=== PATIENT | female | born 1960 | race Caucasian/White ===

== ENCOUNTER 2017-10-29 10:14 | Day surgery (SDC) | payer BC, OTHER ==
[2017-10-29] MEDS: Polymyxin B/Trimethoprim 10 ML Bottle EYELF SCH ×4 (11:22→13:16)
[2017-10-29] MEDS: Brimonidine 0.2% Ophth Soln 5 ML Bottle EYELF SCH ×4 (11:27→13:16)
[2017-10-29] MEDS: Phenylephrine 2.5% Ophth Soln 2 ML Bot EYELF SCH ×6 (11:33→12:58)
[2017-10-29] MEDS: Lidocaine 1% PF 2 ML SDV INJECT SCH ×2 (11:41→13:04)
[2017-10-29] MEDS: Tetracaine HCl/PF 0.5% 4 ML Bottle EYELF SCH ×3 (11:41→13:04)
[2017-10-29] MEDS: Cefuroxime 10 MG/ML SYRINGE EYELF SCH ×2 (11:42→13:16)
[2017-10-29] MEDS: Pilocarpine 4% Ophth Soln 15 ML Bot EYELF SCH ×2 (11:42→13:16)
--- NOTE | 2017-10-29 11:57 | PCM.PREANE ---
Preanesthetic Assessment - Anesthesia/Transfusion/Family Hx Anesthesia History: Prior Anesthesia Without Reaction Family History of Anesthesia Reaction: Yes Transfusion History: No Prior Transfusion(s) Intubation History: Unknown - Review of Systems General: No Symptoms Pulmonary: No Symptoms Cardiovascular: No Symptoms Gastrointestinal: No Symptoms Neurological: No Symptoms Other: Reports: None - Physical Assessment NPO Status Date: 10/28/17 NPO Status Time: 19:30 Pulse: 77 O2 Sat by Pulse Oximetry: 96 Respiratory Rate: 16 Blood Pressure: 152/82 Vital Signs: Last Vital Signs Temp 36.6 C 10/29/17 11:10 Pulse 77 10/29/17 11:10 Resp 16 10/29/17 11:10 BP 152/82 H 10/29/17 11:10 Pulse Ox 96 10/29/17 11:10 Height: 1.6 m Weight: 113.398 kg ASA Class: 2 Mental Status: Alert & Oriented x3 Airway Class: Mallampati = 2 Dentition: Reports: Normal Dentition Thyro-Mental Finger Breadths: 3 Mouth Opening Finger Breadths: 3 ROM/Head Extension: Full Lungs: Clear to Auscultation, Normal Respiratory Effort Cardiovascular: Regular Rate, Regular Rhythm - Allergies Allergies/Adverse Reactions: Allergies Allergy/AdvReac Type Severity Reaction Status Date / Time Penicillins Allergy Cannot Verified 10/28/17 12:22 Remember - Acknowledgements Anesthesia Type Planned: MAC Pt an Appropriate Candidate for the Planned Anesthesia: Yes Alternatives and Risks of Anesthesia Discussed w Pt/Guardian: Yes Pt/Guardian Understands and Agrees with Anesthesia Plan: Yes PreAnesthesia Questionnaire HEENT History: Reports: Cataract Cardiovascular History: Reports: None Respiratory History: Reports: None Gastrointestinal History: Reports: GERD Genitourinary History: Reports: None LATH HAND History: Reports: None Musculoskeletal History: Reports: None Neurological History: Reports: None Psychiatric History: Reports: None Endocrine/Metabolic History: Reports: None Hematologic History: Reports: None Immunologic History: Reports: None Oncologic (Cancer) History: Reports: None Dermatologic History: Reports: None - Past Surgical History Head Surgeries/Procedures: Reports: None, Other (See Below) (chiarri- malformation) HEENT Surgical History: Reports: None, Adenoidectomy, Tonsillectomy Cardiovascular Surgical History: Reports: None Respiratory Surgical History: Reports: None GI Surgical History: Reports: None Female Surgical History: Reports: Section Male Surgical History: Reports: None Endocrine Surgical History: Reports: None Neurological Surgical History: Reports: None Musculoskeletal Surgical History: Reports: Arthroscopic Knee Oncologic Surgical History: Reports: None Dermatological Surgical History: Reports: None - SUBSTANCE USE Smoking Status *Q: Never Smoker - HOME MEDS Home Medications: Home Meds Magnesium 200 mg PO DAILY 10/28/17 [History] Multivitamin [Multi-Day Vitamins] 1 tab PO DAILY 10/28/17 [History] - CURRENT (IN HOUSE) MEDS Current Meds: Current Medications Brimonidine Tartrate (Alphagan 0.2% Ophth Soln) 0 ml EYELF ASDIRECTED ROMEL Stop: 10/29/17 18:00 Last Admin: 10/29/17 11:42 Dose: 1 ml Cefuroxime Sodium (Zinacef) 0 mg EYELF ASDIRECTED ROMEL Stop: 10/29/17 18:00 Last Admin: 10/29/17 11:42 Dose: 1 mg Lidocaine HCl (Xylocaine-Mpf 1%) 10 ml INJECT ASDIRECTED ROMEL Stop: 10/29/17 18:00 Last Admin: 10/29/17 11:41 Dose: 1 ml Phenylephrine HCl (Marv-Synephrine 2.5% Ophth Soln) 0 ml EYELF ASDIRECTED ROMEL Stop: 10/29/17 18:00 Last Admin: 10/29/17 11:43 Dose: 1 drop Pilocarpine HCl (Pilocar 4% Ophth Soln) 0 ml EYELF ASDIRECTED ROMEL Stop: 10/29/17 18:00 Last Admin: 10/29/17 11:42 Dose: 1 ml Polymyxin/Trimethoprim Sulfate (Polytrim Ophth Soln) 0 ml EYELF ASDIRECTED ROMEL Stop: 10/29/17 18:00 Last Admin: 10/29/17 11:42 Dose: 1 ml Tetracaine HCl (Tetracaine 0.5% Steri-Unit Mckenna) 0 ml EYELF ASDIRECTED ROMEL Stop: 10/29/17 18:00 Last Admin: 10/29/17 11:41 Dose: 1 ml Tropicamide (Mydriacyl 1% Ophth Soln) 0 ml EYELF ASDIRECTED ROMEL Stop: 10/29/17 18:00 Last Admin: 10/29/17 11:50 Dose: 1 drop
--- NOTE | 2017-10-29 13:16 | PCM48HPAN ---
Post Anesthesia Note - EVALUATION WITHIN 48HRS OF ANESTHETIC Vital Signs in Normal Range: Yes Patient Participated in Evaluation: Yes Respiratory Function Stable: Yes Airway Patent: Yes Cardiovascular Function Stable: Yes Hydration Status Stable: Yes Pain Control Satisfactory: Yes Nausea and Vomiting Control Satisfactory: Yes Mental Status Recovered: Yes Pulse Rate: 77 SaO2: 95 Resp Rate: 16 Temperature: 97 C Blood Pressure: 184/94
== END 2017-10-29 13:30 | disposition home or self-care (01) ==
LOC: JD.SDS 10:14
PROVIDERS: ATTEND Ophthalmology
DX: H25.813 Combined forms of age-related cataract, bilateral (principal); H17.813 Minor opacity of cornea, bilateral; H16.223 Keratoconjunctivitis sicca, not specified as Sjogren's, bilateral; H16.103 Unspecified superficial keratitis, bilateral; H43.813 Vitreous degeneration, bilateral; K21.9 Gastro-esophageal reflux disease without esophagitis; Z90.89 Acquired absence of other organs; Z79.899 Other long term (current) drug therapy; Z88.0 Allergy status to penicillin
CPT/HCPCS: 66984; C1780; J0697; A9270-GY

== ENCOUNTER 2017-11-24 08:23 | Day surgery (SDC) | payer BC, OTHER ==
[2017-11-24] MEDS: Polymyxin B/Trimethoprim 10 ML Bottle EYERT SCH ×4 (09:14→11:47)
--- NOTE | 2017-11-24 09:17 | PCM.PREANE ---
Preanesthetic Assessment - Procedure Proposed Procedure: Right Eye Cataract Extraction with implant - Anesthesia/Transfusion/Family Hx Anesthesia History: Prior Anesthesia Without Reaction Family History of Anesthesia Reaction: No Transfusion History: No Prior Transfusion(s) Intubation History: Unknown - Review of Systems General: No Symptoms Pulmonary: No Symptoms Cardiovascular: No Symptoms Gastrointestinal: Other (GERD - tx with tums, not crurrently ) Neurological: No Symptoms Other: Reports: None - Physical Assessment NPO Status Date: 11/23/17 NPO Status Time: 22:00 O2 Sat by Pulse Oximetry: 94 Respiratory Rate: 16 Vital Signs: Last Vital Signs Temp 36.6 C 11/24/17 08:50 Pulse 74 11/24/17 08:50 Resp 16 11/24/17 08:50 BP 147/80 H 11/24/17 08:50 Pulse Ox 94 L 11/24/17 08:50 Height: 1.6 m Weight: 113.398 kg ASA Class: 2 Mental Status: Alert & Oriented x3 Airway Class: Mallampati = 1 Dentition: Reports: Normal Dentition Thyro-Mental Finger Breadths: 3 Mouth Opening Finger Breadths: 5 ROM/Head Extension: Full Lungs: Clear to Auscultation, Normal Respiratory Effort Cardiovascular: Regular Rate, Regular Rhythm - Allergies Allergies/Adverse Reactions: Allergies Allergy/AdvReac Type Severity Reaction Status Date / Time Penicillins Allergy Cannot Verified 11/23/17 14:25 Remember - Blood Blood Available: No - Acknowledgements Anesthesia Type Planned: MAC Pt an Appropriate Candidate for the Planned Anesthesia: Yes Alternatives and Risks of Anesthesia Discussed w Pt/Guardian: Yes Pt/Guardian Understands and Agrees with Anesthesia Plan: Yes PreAnesthesia Questionnaire HEENT History: Reports: Cataract Cardiovascular History: Reports: None Respiratory History: Reports: None Gastrointestinal History: Reports: GERD Genitourinary History: Reports: None 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 Musculoskeletal History: Reports: None Neurological History: Reports: None Psychiatric History: Reports: None Endocrine/Metabolic History: Reports: None Hematologic History: Reports: None Immunologic History: Reports: None Oncologic (Cancer) History: Reports: None Dermatologic History: Reports: None - Past Surgical History Head Surgeries/Procedures: Reports: None, Other (See Below) (chiarri- malformation) HEENT Surgical History: Reports: None, Adenoidectomy, Tonsillectomy Cardiovascular Surgical History: Reports: None Respiratory Surgical History: Reports: None GI Surgical History: Reports: None Female Surgical History: Reports: Section Male Surgical History: Reports: None Endocrine Surgical History: Reports: None Neurological Surgical History: Reports: None Musculoskeletal Surgical History: Reports: Arthroscopic Knee Oncologic Surgical History: Reports: None Dermatological Surgical History: Reports: None - SUBSTANCE USE Smoking Status *Q: Never Smoker - HOME MEDS Home Medications: Home Meds Magnesium 200 mg PO DAILY 10/28/17 [History] Multivitamin [Multi-Day Vitamins] 1 tab PO DAILY 10/28/17 [History] - CURRENT (IN HOUSE) MEDS Current Meds: Current Medications Brimonidine Tartrate (Alphagan 0.2% Ophth Soln) 0 ml EYERT ASDIRECTED ROMEL Stop: 11/24/17 18:00 Cefuroxime Sodium (Zinacef) 0 mg EYERT ASDIRECTED ROMEL Stop: 11/24/17 18:00 Lidocaine HCl (Xylocaine-Mpf 1%) 10 ml INJECT ASDIRECTED ROMEL Stop: 11/24/17 18:00 Phenylephrine HCl (Marv-Synephrine 2.5% Ophth Soln) 0 ml EYERT ASDIRECTED ROMEL Stop: 11/24/17 18:00 Pilocarpine HCl (Pilocar 4% Ophth Soln) 0 ml EYERT ASDIRECTED ROMEL Stop: 11/24/17 18:00 Polymyxin/Trimethoprim Sulfate (Polytrim Ophth Soln) 0 ml EYERT ASDIRECTED ROMEL Stop: 11/24/17 18:00 Tetracaine HCl (Tetracaine 0.5% Steri-Unit Mckenna) 0 ml EYERT ASDIRECTED ROMEL Stop: 11/24/17 18:00 Tropicamide (Mydriacyl 1% Ophth Soln) 0 ml EYERT ASDIRECTED ROMEL Stop: 11/24/17 18:00
[2017-11-24] MEDS: Brimonidine 0.2% Ophth Soln 5 ML Bottle EYERT SCH ×4 (09:20→11:47)
[2017-11-24] MEDS: Phenylephrine 2.5% Ophth Soln 2 ML Bot EYERT SCH ×6 (09:26→11:31)
[2017-11-24] MEDS: Lidocaine 1% PF 2 ML SDV INJECT SCH ×2 (10:44→11:37)
[2017-11-24] MEDS: Tetracaine HCl/PF 0.5% 4 ML Bottle EYERT SCH ×3 (10:45→11:40)
[2017-11-24] MEDS: Cefuroxime 10 MG/ML SYRINGE EYERT SCH ×2 (10:45→11:46)
[2017-11-24] MEDS: Pilocarpine 4% Ophth Soln 15 ML Bot EYERT SCH ×2 (10:46→11:47)
--- NOTE | 2017-11-24 11:54 | PCM48HPAN ---
Post Anesthesia Note - EVALUATION WITHIN 48HRS OF ANESTHETIC Vital Signs in Normal Range: Yes Patient Participated in Evaluation: Yes Respiratory Function Stable: Yes Airway Patent: Yes Cardiovascular Function Stable: Yes Hydration Status Stable: Yes Pain Control Satisfactory: Yes Nausea and Vomiting Control Satisfactory: Yes Mental Status Recovered: Yes Pulse Rate: 74 SaO2: 96 Resp Rate: 16 Temperature: 36.9 C Blood Pressure: 140/82
== END 2017-11-24 11:57 | disposition home or self-care (01) ==
LOC: JD.SDS 08:23
PROVIDERS: ATTEND Ophthalmology
DX: H25.813 Combined forms of age-related cataract, bilateral (principal); H17.813 Minor opacity of cornea, bilateral; H16.223 Keratoconjunctivitis sicca, not specified as Sjogren's, bilateral; H16.103 Unspecified superficial keratitis, bilateral; H43.813 Vitreous degeneration, bilateral; K21.9 Gastro-esophageal reflux disease without esophagitis; Z90.89 Acquired absence of other organs; Z98.890 Other specified postprocedural states; Z79.899 Other long term (current) drug therapy; Z96.1 Presence of intraocular lens; Z88.0 Allergy status to penicillin
CPT/HCPCS: 66984; C1780; J0697; A9270-GY

== ENCOUNTER 2018-09-18 16:12 | Emergency (ER) | payer BC, OTHER ==
--- NOTE | 2018-09-18 17:03 | EDM.PDOC ---
<Kae French M - Last Filed: 09/18/18 16:51> ED HPI GENERAL MEDICAL PROBLEM - General Chief Complaint: Respiratory Problem Stated Complaint: COUGH Time Seen by Provider: 09/18/18 16:40 Source of Information: Reports: Patient, RN Notes Reviewed History Limitations: Reports: No Limitations - History of Present Illness INITIAL COMMENTS - FREE TEXT/NARRATIVE: Yelena is a 58 year old female who presents to the ED for evaluation of her cough. She states that about 7 days ago her symptoms started after traveling to [place] on a "fantasma dish of a plane". She states that she developed a cough and that it has just worsened. It has become more productive with yellow sputum in the last 5 days. She feels very "junky" and short of breath at times. She has had very poor sleep because she is coughing all night. Cough is made worse by lying down and better by sitting up. She has treated herself with NyQuil, vitamin C and other vitamins and cough drops. She does leak some urine when coughing which is unusual for her. She also describes a weakness in her anterior thighs that is waxing and waning. She denies any fever, chills, nightsweats, headache, ear pain, or sore throat. She denies any chest pain. She denies any tobacco use and uses alcohol very occasionally. 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, Other Medication(s) - Related Data Allergies Allergy/AdvReac Type Severity Reaction Status Date / Time Penicillins Allergy Cannot Verified 09/18/18 16:29 Remember Home Meds: Home Meds Magnesium 200 mg PO DAILY 10/28/17 [History] Multivitamin [Multi-Day Vitamins] 1 tab PO DAILY 10/28/17 [History] Albuterol [Ventolin HFA] 1 puff INH Q4H PRN #1 inh 09/18/18 [Rx] Azithromycin [Zithromax] 250 mg PO DAILY #6 tab 09/18/18 [Rx] Inhaler, Assist Devices [Aerochamber with Flowsignal] 1 each ASDIRECTED #1 spacer 09/18/18 [Rx] Past Medical History HEENT History: Reports: Cataract Cardiovascular History: Reports: None Respiratory History: Reports: None Gastrointestinal History: Reports: GERD Genitourinary History: Reports: None DRAW END HAND History: Reports: None Musculoskeletal History: Reports: None Other Musculoskeletal History: muscle cramps Neurological History: Reports: None Psychiatric History: Reports: None Endocrine/Metabolic History: Reports: None, Obesity/BMI 30+ Hematologic History: Reports: None Immunologic History: Reports: None Oncologic (Cancer) History: Reports: None Dermatologic History: Reports: None - Past Surgical History Head Surgeries/Procedures: Reports: None, Other (See Below) HEENT Surgical History: Reports: None, Adenoidectomy, Cataract Surgery, Tonsillectomy Cardiovascular Surgical History: Reports: None Respiratory Surgical History: Reports: None GI Surgical History: Reports: None Female Surgical History: Reports: Section Endocrine Surgical History: Reports: None Neurological Surgical History: Reports: None Musculoskeletal Surgical History: Reports: Arthroscopic Knee Oncologic Surgical History: Reports: None Dermatological Surgical History: Reports: None Social & Family History - Family History Family Medical History: Noncontributory - Tobacco Use Smoking Status *Q: Never Smoker - Caffeine Use Caffeine Use: Reports: Coffee - Recreational Drug Use Recreational Drug Use: No ED ROS GENERAL - Review of Systems Review Of Systems: ROS reveals no pertinent complaints other than HPI. ED EXAM, GENERAL - Physical Exam Exam: See Below Exam Limited By: No Limitations General Appearance: Alert, WD/WN, No Apparent Distress Eye Exam: Bilateral Eye: Normal Inspection Ears: Normal External Exam, Normal Canal, Normal TMs (TM scarring, patient reports TM tubes as a child) Nose: Normal Inspection, Normal Mucosa. No: Nasal Swelling, Nasal Drainage Throat/Mouth: Normal Inspection Head: Atraumatic, Normocephalic Neck: Normal Inspection, Supple, Non-Tender, Full Range of Motion Respiratory/Chest: Wheezing (throughout ), Prolonged Expiration Cardiovascular: Regular Rate, Rhythm, No Gallop, No Murmur, No Rub Neurological: Alert, Oriented, Normal Cognition Psychiatric: Normal Affect, Normal Mood Skin Exam: Warm, Dry, Intact, Normal Color Course - Vital Signs Last Recorded V/S: Last Vital Signs Temp 97.9 F 09/18/18 16:26 Pulse 95 09/18/18 16:26 Resp 18 09/18/18 16:26 BP 174/115 H 09/18/18 16:26 Pulse Ox 99 09/18/18 17:10 - Orders/Labs/Meds Orders: Active Orders 24 hr Category Date Time Status RT Aerosol Therapy [RC] ASDIRECTED Care 09/18/18 17:10 Active Chest 2V [CR] Stat Exams 09/18/18 17:09 Taken Meds: Medications Discontinued Medications Generic Name Dose Route Start Last Admin Trade Name Diego PRN Reason Stop Dose Admin Albuterol 2.5 mg 09/18/18 17:10 09/18/18 17:16 Proventil Neb Soln NEB 09/18/18 17:11 2.5 mg ONETIME ONE Administration Departure - Departure Disposition: Home, Self-Care 01 Clinical Impression: Bronchitis - Discharge Information Prescriptions: Albuterol [Ventolin HFA] 1 puff INH Q4H PRN #1 inh PRN Reason: Shortness Of Breath Azithromycin [Zithromax] 250 mg PO DAILY #6 tab Inhaler, Assist Devices [Aerochamber with Flowsignal] 1 each MC ASDIRECTED #1 spacer Instructions: Acute Bronchitis, Adult, [id number] Referrals: PCP,None [Primary Care Provider] - Forms: ED Department Discharge Additional Instructions: Take the azithromycin as prescribed. 2 tabs on day 1 followed by 1 tablet on days 2 through 5 for 5 days of antibiotics total. Use the albuterol inhaler with the spacer one or 2 puffs every 4-6 hours as needed for shortness of breath. Follow-up with your primary care provider next week for recheck of your symptoms. may use [id number] Tylenol or Motrin as needed for fevers and discomfort. Rest. Get plenty of fluids. Please return to the ER if your symptoms change or worsen. - My Orders Last 24 Hours: My Active Orders 09/18/18 17:09 Chest 2V [CR] Stat 09/18/18 17:10 RT Aerosol Therapy [RC] ASDIRECTED - Assessment/Plan Last 24 Hours: My Active Orders 09/18/18 17:09 Chest 2V [CR] Stat 09/18/18 17:10 RT Aerosol Therapy [RC] ASDIRECTED <Kerry Gross - Last Filed: 09/18/18 23:20> ED HPI GENERAL MEDICAL PROBLEM - History of Present Illness INITIAL COMMENTS - FREE TEXT/NARRATIVE: I have seen the patient and agree with the HPI as documented by KRISH Rhodes Patient reports that she frequently gets cramping in her legs but has not had any significant leg pain or swelling recently. She denies any chest pain. Denies any hemoptysis. ED ROS GENERAL - Review of Systems Review Of Systems: See Below ED EXAM, GENERAL - Physical Exam Exam: See Below Respiratory/Chest: No Respiratory Distress Cardiovascular: Normal Peripheral Pulses, Regular Rate, Rhythm Course - Radiology Interpretation Free Text/Narrative:: Two-view chest x-ray shows no acute intrathoracic process. No pneumonia appreciated. Formal radiology read pending. - Re-Assessments/Exams Free Text/Narrative Re-Assessment/Exam: 09/18/18 17:58 I have seen the patient and agree with the history of present illness, review of systems and physical exam is documented by KRISH Rhodes. The patient's influenza return negative. I reviewed the labs and imaging with the patient. Will treat for bronchitis with azithromycin and albuterol inhaler. She is instructed to return to the ER for symptoms change or worsen. Discharge instructions as documented. Departure - Departure Time of Disposition: 17:59 Condition: Fair - Discharge Information *PRESCRIPTION DRUG MONITORING PROGRAM REVIEWED*: No *COPY OF PRESCRIPTION DRUG MONITORING REPORT IN PATIENT HARISH: No
[2018-09-18] MEDS ORDERED: Albuterol 0.083% 2.5 MG/3 ML Neb Soln NEB ONE (17:10)
--- NOTE | 2018-09-19 17:00 | CR ---
Chest: Two views of the chest were obtained. Comparison: Prior chest x-ray of 11/05/10. Heart size and mediastinum are normal. Lungs are clear. Prior cervical spine surgery is noted. Incidental scoliosis is noted. Impression: 1. Nothing acute is seen on two-view chest x-ray. Diagnostic code #2
== END 2018-09-18 18:15 | disposition home or self-care (01) ==
LOC: JD.ED 16:12
DX: J40 Bronchitis, not specified as acute or chronic (principal); Z88.0 Allergy status to penicillin; Z79.899 Other long term (current) drug therapy
CPT/HCPCS: 71046; 71046-26; 87804; 94640; 99283; 99284-25

== ENCOUNTER → 2020-08-16 | Day surgery (SDC) | payer BC, OTHER ==
[~2020-08-16] MED LIST: Brimonidine 0.2% Ophth Soln 5 ML Bottle EYEBOTH SCH; Phenylephrine 2.5% Ophth Soln 15 ML Bot EYEBOTH SCH; Tropicamide 1% Ophth Soln 15 ML Bottle EYEBOTH SCH
== END ==
LOC: JD.SDS 09:49
PROVIDERS: ATTEND Ophthalmology
DX: H26.493 Other secondary cataract, bilateral (principal); H00.11 Chalazion right upper eyelid; H43.813 Vitreous degeneration, bilateral; H17.813 Minor opacity of cornea, bilateral; H16.103 Unspecified superficial keratitis, bilateral; H16.223 Keratoconjunctivitis sicca, not specified as Sjogren's, bilateral; Z98.890 Other specified postprocedural states; Z88.0 Allergy status to penicillin; Z96.1 Presence of intraocular lens